=== PATIENT | female | born 2005 | race Caucasian/White ===

== ENCOUNTER 2023-03-29 16:07 | Observation (INO) ==
--- NOTE | 2023-03-29 16:39 | Emergency Department Note ---
ED Provider Note History of Present Illness Chief Complaint: Abdominal Pain Stated Complaint: ABD PAIN,NAUSEA,VOMITING,DIZZY Time Seen by Provider: 03/29/23 16:39 This patient is a 17-year-old Female who presents to the ED for evaluation of abdominal pain. She reports pain started around 9 am today. She has had a decreased appetite and some nausea for a few days, but no pain until today. Pain has been severe at times, currently rates it a 5/10. Pain is on the right side, from her umbilicus over. She reports one episode of vomiting. Denies BM changes. Denies fevers/chills or urinary symptoms. She states nothing makes the symptoms better or worse. Home Medications Medication Instructions Recorded Confirmed Type escitalopram oxalate 10 mg tablet 10 mg PO DAILY 03/29/23 03/29/23 History fluocinonide 0.05 % topical See Rx Instructions .Route .COMPLEX 03/29/23 03/29/23 History solution oxycodone-acetaminophen 5 mg-325 1 tab PO Q6H PRN pain #10 tabs 03/30/23 Rx mg tablet (Percocet) Allergies Allergy/AdvReac Type Severity Reaction Status Date / Time No Known Allergies Allergy Unverified 03/29/23 19:27 Past Med/Surg History Social History Smoking Status: Never smoker Do You Dip or Chew Tobacco: No; Hx Alcohol Use: No Hx Substance Use: No Preferred Language: Japanese Communication Ability: Effective Physician In Private Practice Required: No Beliefs That Will Affect Care: None Current Living Situation: Other Current Living Situation Comment: friend in off campus apartment, [employer] student Feels Safe at Home: Yes Safety Concerns: Feels Safe At This Time Assistive Devices: Glasses Physical Exam Vital Signs Vital Signs - 24 hr 03/29/23 16:38 Temperature 36.8 C Temperature Source Oral Pulse Rate 79 Respiratory Rate 16 Respiratory Effort / Characteristics Non-Labored Spontaneous Respiratory Depth Normal Respiratory Pattern Regular Blood Pressure 121/78 Blood Pressure Mean 92 Blood Pressure Position Sitting Pulse Oximetry 97 Oxygen Delivery Method Room Air Sepsis Recent Fever Within 48 Hours No Sepsis New/Unexplained Change in Mental Status No Sepsis Action Taken by Nursing No Action Required VITALS: Vitals are noted on the nurse's note and reviewed by myself. GENERAL: This is a 17-year-old female, in no acute distress, well-developed well-nourished. SKIN: The skin was without rashes. HEART: Regular rate and rhythm without murmurs gallops or rubs. LUNGS: Clear to auscultation bilaterally without wheezes, rales or rhonchi. ABDOMEN: Positive bowel sounds x 4. Soft, tenderness in the right mid abdomen and right lower quadrant. NEURO: Patient was alert and oriented to person place and time. Course Administered Medications Discontinued Medications Bupivacaine HCl/Epinephrine Bitart (Bupivacaine/Epinephrine 0.5% Mpf 1:200,000 30 Ml Vial) Confirm Administered Dose 30 ml .ROUTE .STK-MED ONE Stop: 03/29/23 21:44 Last Admin: 03/29/23 22:56 Dose: 20 ml Documented By: MARIMAR Fentanyl Citrate (Fentanyl Citrate Pf 100 Mcg/2 Ml Vial) 50 mcg IV Q5M PRN PRN Reason: PACU Use Only-Pain Stop: 03/30/23 05:40 Last Admin: 03/29/23 23:35 Dose: 50 mcg Documented By: Admin: 03/29/23 23:30 Dose: 50 mcg Documented By: SIDDHARTH Fentanyl Citrate (Fentanyl Citrate Pf 100 Mcg/2 Ml Vial) Confirm Administered Dose 100 mcg .ROUTE .STK-MED ONE Stop: 03/29/23 23:29 Last Admin: 03/29/23 23:49 Dose: Not Given Documented By: SIDDHARTH Sodium Chloride (Nss) 1,000 mls @ 999 mls/hr IV .Q1H1M ONE Stop: 03/29/23 17:40 Last Infusion: 03/29/23 18:37 Dose: Infused Documented By: Admin: 03/29/23 17:15 Dose: 999 mls/hr Documented By: HARSHAL Cefoxitin Sodium 2,000 mg/ (Dextrose) 50 mls @ 100 mls/hr IV ONCE ONE; Protocol Stop: 03/29/23 23:06 Last Infusion: 03/30/23 00:25 Dose: Infused Documented By: Admin: 03/29/23 22:10 Dose: 100 mls/hr Documented By: [id number] Sodium Chloride (Nss) 1,000 mls @ 75 mls/hr IV .[id number] [facility] Stop: 04/29/23 01:44 Last Infusion: 03/30/23 15:09 Dose: Infused Documented By: Admin: 03/30/23 01:47 Dose: 75 mls/hr Documented By: LELE Ioversol (Optiray 320 500ml) 88 ml IV ONCE ONE Stop: 03/29/23 19:11 Last Admin: 03/29/23 19:11 Dose: 88 ml Documented By: EVERTON Ketorolac Tromethamine (Ketorolac Tromethamine 15 Mg/Ml Vial) 10 mg IV NOW ONE Stop: 03/29/23 16:41 Last Admin: 03/29/23 17:16 Dose: 10 mg Documented By: HARSHAL Ondansetron HCl (Ondansetron Inj 2 Mg/Ml 2 Ml Vial) 4 mg IV NOW STA Stop: 03/29/23 16:41 Last Admin: 03/29/23 17:16 Dose: 4 mg Documented By: HARSHAL Oxycodone/Acetaminophen (Oxycodone/Acetaminophen 5mg/325mg Tab) 1 tab PO Q4H PRN PRN Reason: MODERATE Pain (4,5,6) & Pre PT Stop: 04/13/23 00:20 Last Admin: 03/30/23 14:16 Dose: 1 tab Documented By: Admin: 03/30/23 07:27 Dose: 1 tab Documented By: Admin: 03/30/23 00:52 Dose: 1 tab Documented By: LELE Medical Decision Making Differential Diagnosis Appendicitis, ovarian cyst, ovarian torsion, ectopic , TOA, PID, infections, diverticulitis, UTI, obstruction, mesenteric ischemia, aortic pathology, inflammatory bowel disease, renal colic, PUD, pancreatitis, biliary pathology, hernia, volvulus, constipation, as well as other pathologies. Home Medications was personally reviewed by me Laboratory Data Attestation: I reviewed the patient's lab results. 03/30/23 06:16 03/29/23 17:02 Lab Results 03/29/23 03/29/23 Range/Units 17:02 18:33 WBC 7.93 (4.8-10.8) K/ul RBC 4.68 (4.20-5.40) M/uL Hgb 13.4 (12.0-16.0) g/dl Hct 39.8 (37.0-47.0) % MCV 85.0 (80.0-100.0) fL MCH 28.6 (25.0-34.0) pg MCHC 33.7 (32.0-36.0) g/dL RDW Std Deviation 36.6 (36.4-46.3) fL RDW Coeff of Lemuel 12.0 (11.5-14.5) % Plt Count 172 (130-400) K/uL MPV 11.9 (9.4-12.4) fL Sodium 140 (136-145) mmol/L Potassium 4.1 (3.5-5.1) mmol/L Chloride 107 (98-107) mmol/L Carbon Dioxide 24 (21-32) mmol/L Anion Gap 9 (3-11) BUN 12 (6-23) mg/dl Creatinine 0.63 (0.6-1.2) mg/dl Est Cr Clr Drug Dosing 119.3 ml/min Est GFR ( Amer) > 150.0 ml/min Est GFR (Non-Af Amer) 130.0 ml/min BUN/Creatinine Ratio 19.0 (10-20) Glucose 98 (70-99(Fasting)) mg/dl Calcium 9.6 (8.6-10.3) mg/dl Total Bilirubin 0.4 (0.2-1.0) mg/dl AST 27 (13-39) U/L ALT 16 (7-52) U/L Alkaline Phosphatase 49 (34-104) U/L Total Protein 7.4 (6.0-8.3) gm/dl Albumin 4.8 (3.4-5.0) gm/dl Globulin 2.6 (2.5-4.0) gm/dl Albumin/Globulin Ratio 1.8 (0.9-2) Lipase 11 (11-82) U/L HCG, Qual Negative (Negative) Urine Color Yellow Urine Appearance Clear (Clear) Urine pH 7.0 (4.5-7.5) Ur Specific [place] 1.010 (1.000-1.030) Urine Protein Negative (Negative) Urine Glucose (UA) Negative (Negative) Urine Ketones Negative (Negative) Urine Blood Negative (Negative) Urine Nitrite Negative (Negative) Urine Bilirubin Negative (Negative) Urine Urobilinogen Negative (Negative) Ur Leukocyte Esterase Trace H (Negative) Urine RBC 0-4 (0-4) /hpf Urine WBC 0-5 (0-5) /hpf Ur Epithelial Cells 0-5 (0-5) /lpf Urine Bacteria Negative (Negative) POC Ur Test NEG (NEG) Imaging Data Attestation: I personally reviewed and interpreted this imaging study as follows: Radiologist's Impression: Abdomen/Pelvis CT 03/29/23 16:[address] WITH IV AND ORAL CONTRAST CT DOSE: 444.24 mGy.cm HISTORY: Right lower quadrant pain. Nausea. TECHNIQUE: Multiaxial CT images of the abdomen and pelvis were performed following the use of intravenous and oral contrast. A dose lowering technique was utilized adhering to the principles of ALARA. COMPARISON STUDY: None. FINDINGS: The lung bases are clear. No pneumoperitoneum. No pneumatosis. No acute fractures identified. There is a 6 mm hypodense lesion within the left hepatic lobe. This is technically too small to characterize. There is a 1 cm hypodense lesion within the right hepatic lobe. This may represent a small hemangioma. The main portal vein is patent. The gallbladder, pancreas, adrenal glands, and kidneys are unremarkable. No hydronephrosis. The main portal vein is patent. Normal caliber abdominal aorta. No retroperitoneal lymphadenopathy. Trace pelvic free fluid. This is likely physiologic. The uterus, bladder, left ovary are unremarkable. There is a 4.2 cm right ovarian cyst. No dilated loops of bowel to suggest an obstruction. The appendix is identified and demonstrates a retrocecal location. The appendix is filled with fluid and does not fill with contrast. The body of the appendix is borderline dilated up to 6.9 mm. There is minimal periappendiceal inflammatory change suggested at the tip of the appendix on image 194. Therefore, these findings could represent an early acute appendicitis. Clinical correlation recommended. In addition, there is abnormal hypodense 3 cm lesion within the right lower quadrant on image 199. This is indeterminate and could represent a Meckel's diverticulum, chronic lymph node, or less likely a small bowel mass. IMPRESSION: 1. Borderline abnormal appendix as described above. An early acute appendicitis is not excluded. Surgical consultation recommended for further evaluation. 2. An abnormal hypodense 3 cm lesion within the right lower quadrant. This is indeterminate and could represent a Meckel's diverticulum, chronic lymph node, or less likely a small bowel mass. Follow-up nuclear medicine Meckel scan and surgical consultation recommended. 3. No evidence for bowel obstruction. 4. A 4.2 cm right ovarian cyst. 5. Additional findings as described above. ACT 112: Negative or not required by law. Electronically signed by: Bolivar Marrero M.D. 03/29/2023 7:33 PM MDM Narrative This patient is a 17-year-old female who presents to the emergency department for evaluation of right lower quadrant abdominal pain. CT scan of the abdomen/pelvis with IV and oral contrast was performed and reviewed by radiology as above. Patient found to have a borderline abnormal appendix suggestive of possible early acute appendicitis. This does fit with patient's symptoms of 2 days of anorexia/nausea and current right lower quadrant pain. She was found to have a possible Meckel's diverticulum as well. General surgery was consulted and will take the patient to the OR for operative management. Patient verbalized understanding of my assessment and treatment plan and was discharged home in good condition. Impression Acute appendicitis Discharge Plan Visit Data Chief Complaint: Abdominal Pain Stated Complaint: ABD PAIN,NAUSEA,VOMITING,DIZZY ED Provider: David Amor ED Midlevel Provider: Charlotte Salmon Discharge Problem: Acute appendicitis Patient Disposition: Admitted As Inpatient Discharge Instructions Interventions: ED Discharge Assessment Last Done: 03/29/23 21:45
[2023-03-29] MEDS ORDERED: SODIUM CHLORIDE 0.9% 1,000 ML IV ONE (16:40)
[2023-03-29] MEDS ORDERED: ONDANSETRON INJ 2 MG/ML 2 ML VIAL IV STA (16:40)
[2023-03-29] MEDS ORDERED: KETOROLAC TROMETHAMINE 15 MG/ML VIAL IV ONE (16:40)
[2023-03-29 17:16] LABS: Hematocrit (blood only) 39.8 % (37.0-47.0); Hemoglobin 13.4 g/dl (12.0-16.0); Mean Corpuscular Hemoglobin 28.6 pg (25.0-34.0); Mean Corpuscular Hgb Conc 33.7 g/dL (32.0-36.0); Mean Platelet Volume 11.9 fL (9.4-12.4); Platelet Count 172 K/uL (130-400); RDW Standard Deviation 36.6 fL (36.4-46.3); Red Blood Count 4.68 M/uL (4.20-5.40); White Blood Count 7.93 K/ul (4.8-10.8)
[2023-03-29 17:32] LABS: Alanine Aminotransferase 16 U/L (7-52); Albumin Globulin Ratio 1.8 (0.9-2); Albumin Level 4.8 gm/dl (3.4-5.0); Alkaline Phosphatase 49 U/L (34-104); Anion Gap 9 (3-11); Aspartate Aminotransferase 27 U/L (13-39); Bilirubin,Total 0.4 mg/dl (0.2-1.0); Blood Urea Nitrogen 12 mg/dl (6-23); Calcium 9.6 mg/dl (8.6-10.3); Carbon Dioxide 24 mmol/L (21-32); Chloride 107 mmol/L (98-107); Creatinine Clr Calc Pharmacy 119.3 ml/min; Est GFR (African American) > 150.0 ml/min; Globulin 2.6 gm/dl (2.5-4.0); Glucose 98 mg/dl (70-99(Fasting)); Lipase 11 U/L (11-82); Potassium 4.1 mmol/L (3.5-5.1); Sodium 140 mmol/L (136-145); Total Protein 7.4 gm/dl (6.0-8.3)
[2023-03-29 17:51] LABS: Pregnancy Test, Serum Negative (Negative)
[2023-03-29 18:46] LABS: Appearance Urine Clear (Clear); Bilirubin Urine Negative (Negative); Blood Urine Negative (Negative); Color Urine Yellow; Glucose Urine UA Negative (Negative); Ketones Urine Negative (Negative); Leukocyte Esterase Urine Trace (Negative); Nitrite Urine Negative (Negative); Protein Urine Negative (Negative); Urobilinogen Urine Negative (Negative)
[2023-03-29 19:08] LABS: Bacteria Urine Negative (Negative); Epithelial Cell Urine 0-5 /lpf (0-5); RBC Urine 0-4 /hpf (0-4); WBC Urine 0-5 /hpf (0-5)
[2023-03-29] MEDS ORDERED: OPTIRAY 320 500ml IV ONE (19:10)
--- NOTE | 2023-03-29 19:35 | CT Scan Report ---
ABDOMEN AND PELVIS CT WITH IV AND ORAL CONTRAST CT DOSE: 444.24 mGy.cm HISTORY: Right lower quadrant pain. Nausea. TECHNIQUE: Multiaxial CT images of the abdomen and pelvis were performed following the use of intrave nous and oral contrast. A dose lowering technique was utilized adhering to the principles of ALARA. COMPARISON STUDY: None. FINDINGS: The lung bases are clear. No pneumoperitoneum. No pneumatosis. No acute fractures identifie d. There is a 6 mm hypodense lesion within the left hepatic lobe. This is technically too small to ch aracterize. There is a 1 cm hypodense lesion within the right hepatic lobe. This may represent a smal l hemangioma. The main portal vein is patent. The gallbladder, pancreas, adrenal glands, and kidneys are unremarkable. No hydronephrosis. The main portal vein is patent. Normal caliber abdominal aorta. No retroperitoneal lymphadenopathy. Trace pelvic free fluid. This is likely physiologic. The uterus, bladder, left ovary are unremarkable. There is a 4.2 cm right ovarian cyst. No dilated loops of bowel to suggest an obstruction. The appendix is identified and demonstrates a retrocecal location. The ap pendix is filled with fluid and does not fill with contrast. The body of the appendix is borderline d ilated up to 6.9 mm. There is minimal periappendiceal inflammatory change suggested at the tip of the appendix on image 194. Therefore, these findings could represent an early acute appendicitis. Clinic al correlation recommended. In addition, there is abnormal hypodense 3 cm lesion within the right low er quadrant on image 199. This is indeterminate and could represent a Meckel's diverticulum, chronic lymph node, or less likely a small bowel mass. IMPRESSION: 1. Borderline abnormal appendix as described above. An early acute appendicitis is not excluded. Surg ical consultation recommended for further evaluation. 2. An abnormal hypodense 3 cm lesion within the right lower quadrant. This is indeterminate and could represent a Meckel's diverticulum, chronic lymph node, or less likely a small bowel mass. Follow-up nuclear medicine Meckel scan and surgical consultation recommended. 3. No evidence for bowel obstruction. 4. A 4.2 cm right ovarian cyst. 5. Additional findings as described above. ACT 112: Negative or not required by law. Electronically signed by: Bolivar Marrero M.D. 03/29/2023 7:33 PM
--- NOTE | 2023-03-29 21:15 | History & Physical Report ---
Date of Service March 29, 2023 Assessment & Plan (1) Acute appendicitis: Plan: 17-year-old woman with acute appendicitis and incidental finding of possible Meckel's versus cystic lesion on CT scan. I had a long discussion with her concerning the appendicitis as well as the finding on CT scan. I discussed the risk and benefits of laparoscopic exploration with appendectomy and possible removal of the abnormality. All her questions were answered, and she is agreeable to proceed. We will take her to the operating room at the earliest convenience. Consent has been obtained. History of Present Illness Primary Care Provider: NO PCP 17-year-old woman presents with a 1 day history of crampy bloating abdominal pain in the upper abdomen centered around the umbilicus which subsequently radiated to the right lower quadrant. The pain progressed and became worse during the day. It was accompanied with chills. She does endorse nausea and dry heaving. She has never had pain like this in the past. She has not eaten anything for 2 days. She denies history of constipation or diarrhea. She denies blood in her stool or black tarry stools. She denies history of inflammatory bowel disease. She denies chest pain or shortness of breath. She is otherwise healthy. CT scan demonstrates acute appendicitis as well as a fluid-filled cystlike structure next to the ascending colon, possible Meckel's versus lymph node versus cyst. Allergies Allergy/AdvReac Type Severity Reaction Status Date / Time No Known Allergies Allergy Unverified 03/29/23 19:27 Home Medications Medication Instructions Recorded Confirmed Type escitalopram oxalate 10 mg tablet 10 mg PO DAILY 03/29/23 03/29/23 History fluocinonide 0.05 % topical See Rx Instructions .Route .COMPLEX 03/29/23 03/29/23 History solution Past Med/Surg History Social History Smoking Status: Never smoker Preferred Language: Tuvaluan Feels Safe at Home: Yes Review of Systems Review of Systems: All systems reviewed & are unremarkable except as noted in HPI & below Physical Exam Constitutional: WD/WN, vitals as above Eyes: PERRL, conjunctivae normal, anicteric sclerae Neck: trachea midline, no thyromegaly Respiratory: normal respiratory effort; no respiratory distress and no labored breathing Cardiovascular: Rate/Rhythm: regular rate and regular rhythm Gastrointestinal (Abdomen): Inspection/Auscultation: abdomen normal to inspection; abdomen not distended Percussion/Palpation: + abdomen tender (RLQ) and abdomen soft; no guarding and abdomen not rigid Positive Rovsing sign Skin: no rashes, warm and dry Psychiatric: A+Ox3, euthymic affect Results & Data Results & Data Vital Signs (Past 12 Hours) Vital Signs Temp Pulse Pulse Resp BP BP Pulse Ox 03/29/23 19:00 64 15 116/83 99 03/29/23 18:32 66 18 99 03/29/23 18:31 73 18 109/66 99 03/29/23 16:38 36.8 C 79 16 121/78 97 O2 Del Method 03/29/23 19:00 Room Air 03/29/23 18:32 Room Air 03/29/23 18:31 Room Air 03/29/23 16:38 Room Air Laboratory Results 03/29/23 03/29/23 Range/Units 18:33 17:02 WBC 7.93 (4.8-10.8) K/ul RBC 4.68 (4.20-5.40) M/uL Hgb 13.4 (12.0-16.0) g/dl Hct 39.8 (37.0-47.0) % MCV 85.0 (80.0-100.0) fL MCH 28.6 (25.0-34.0) pg MCHC 33.7 (32.0-36.0) g/dL RDW Std Deviation 36.6 (36.4-46.3) fL RDW Coeff of Lemuel 12.0 (11.5-14.5) % Plt Count 172 (130-400) K/uL MPV 11.9 (9.4-12.4) fL Sodium 140 (136-145) mmol/L Potassium 4.1 (3.5-5.1) mmol/L Chloride 107 (98-107) mmol/L Carbon Dioxide 24 (21-32) mmol/L Anion Gap 9 (3-11) BUN 12 (6-23) mg/dl Creatinine 0.63 (0.6-1.2) mg/dl Est Cr Clr Drug Dosing 119.3 ml/min Est GFR ( Amer) > 150.0 ml/min Est GFR (Non-Af Amer) 130.0 ml/min BUN/Creatinine Ratio 19.0 (10-20) Glucose 98 (70-99(Fasting)) mg/dl Calcium 9.6 (8.6-10.3) mg/dl Total Bilirubin 0.4 (0.2-1.0) mg/dl AST 27 (13-39) U/L ALT 16 (7-52) U/L Alkaline Phosphatase 49 (34-104) U/L Total Protein 7.4 (6.0-8.3) gm/dl Albumin 4.8 (3.4-5.0) gm/dl Globulin 2.6 (2.5-4.0) gm/dl Albumin/Globulin Ratio 1.8 (0.9-2) Lipase 11 (11-82) U/L HCG, Qual Negative (Negative) Urine Color Yellow Urine Appearance Clear (Clear) Urine pH 7.0 (4.5-7.5) Ur Specific [place] 1.010 (1.000-1.030) Urine Protein Negative (Negative) Urine Glucose (UA) Negative (Negative) Urine Ketones Negative (Negative) Urine Blood Negative (Negative) Urine Nitrite Negative (Negative) Urine Bilirubin Negative (Negative) Urine Urobilinogen Negative (Negative) Ur Leukocyte Esterase Trace H (Negative) Urine RBC 0-4 (0-4) /hpf Urine WBC 0-5 (0-5) /hpf Ur Epithelial Cells 0-5 (0-5) /lpf Urine Bacteria Negative (Negative) POC Ur Test NEG (NEG) Diagnostic Findings ABDOMEN AND PELVIS CT WITH IV AND ORAL CONTRAST CT DOSE: 444.24 mGy.cm HISTORY: Right lower quadrant pain. Nausea. TECHNIQUE: Multiaxial CT images of the abdomen and pelvis were performed following the use of intravenous and oral contrast. A dose lowering technique was utilized adhering to the principles of ALARA. COMPARISON STUDY: None. FINDINGS: The lung bases are clear. No pneumoperitoneum. No pneumatosis. No acute fractures identified. There is a 6 mm hypodense lesion within the left hepatic lobe. This is technically too small to characterize. There is a 1 cm hypodense lesion within the right hepatic lobe. This may represent a small hemangioma. The main portal vein is patent. The gallbladder, pancreas, adrenal glands, and kidneys are unremarkable. No hydronephrosis. The main portal vein is patent. Normal caliber abdominal aorta. No retroperitoneal lymphadenopathy. Trace pelvic free fluid. This is likely physiologic. The uterus, bladder, left ovary are unremarkable. There is a 4.2 cm right ovarian cyst. No dilated loops of bowel to suggest an obstruction. The appendix is identified and demonstrates a retrocecal location. The appendix is filled with fluid and does not fill with contrast. The body of the appendix is borderline dilated up to 6.9 mm. There is minimal periappendiceal inflammatory change suggested at the tip of the appendix on image 194. Therefore, these findings could represent an early acute appendicitis. Clinical correlation recommended. In addition, there is abnormal hypodense 3 cm lesion within the right lower quadrant on image 199. This is indeterminate and could represent a Meckel's diverticulum, chronic lymph node, or less likely a small bowel mass. IMPRESSION: 1. Borderline abnormal appendix as described above. An early acute appendicitis is not excluded. Surgical consultation recommended for further evaluation. 2. An abnormal hypodense 3 cm lesion within the right lower quadrant. This is indeterminate and could represent a Meckel's diverticulum, chronic lymph node, or less likely a small bowel mass. Follow-up nuclear medicine Meckel scan and surgical consultation recommended. 3. No evidence for bowel obstruction. 4. A 4.2 cm right ovarian cyst. 5. Additional findings as described above. ACT 112: Negative or not required by law. (1) Acute appendicitis Acute appendicitis type: with localized peritonitis Appendicitis gangrene presence: without gangrene Appendicitis perforation presence: without perforation Appendicitis abscess presence: without abscess Qualified Code(s): K35.30 - Acute appendicitis with localized peritonitis, without perforation or gangrene
[2023-03-29] MEDS ORDERED: ROCURONIUM BROMIDE 10 MG/ML 5 ML VIAL IV ONE (21:26)
[2023-03-29] MEDS ORDERED: PROPOFOL IV EMULSION 10 MG/ML 20 ML VIAL IV ONE (21:26)
[2023-03-29] MEDS ORDERED: fentaNYL citrate PF 100 MCG/2 ML VIAL ONE ×3 (21:26→23:28)
[2023-03-29] MEDS ORDERED: SUCCINYLCHOLINE 100MG/5ML SYR IV ONE (21:33)
[2023-03-29] MEDS ORDERED: HYDROmorphone INJ 2 MG/ML SYR/VIAL IV PRN (21:40)
[2023-03-29] MEDS ORDERED: ePHEDrine sulfate 50 MG/ML AMP IV PRN (21:40)
[2023-03-29] MEDS ORDERED: ONDANSETRON INJ 2 MG/ML 2 ML VIAL IV PRN (21:40)
[2023-03-29] MEDS ORDERED: ATROPINE SULFATE 0.1 MG/ML 10ML SYR IV PRN (21:40)
[2023-03-29] MEDS ORDERED: BUPIVACAINE/EPINEPHRINE 0.5% MPF 1:200,000 30 ML VIAL ONE (21:43)
--- NOTE | 2023-03-29 21:44 | Anesthesiology Consultation ---
Date of Service March 29, 2023 Assessment & Plan ASA ASA1E Proposed Anesthesia Anesthesia Type: General Risk / Benefits Reviewed With: PT / POA / Parent / Guardian, Accepts Plan and Informed Consent Obtained History Surgery Operation Date: 03/29/23 19:20 Proposed Procedures p Laparoscopic Appendectomy - Kristofer Boone MD Height/Weight Height: 5 ft 8 in Weight: 52.6 kg Allergies Allergy/AdvReac Type Severity Reaction Status Date / Time No Known Allergies Allergy Unverified 03/29/23 19:27 Medications Home Medications Medication Instructions Recorded Confirmed Last Taken escitalopram oxalate 10 mg tablet 10 mg PO DAILY 03/29/23 03/29/23 03/28/23 fluocinonide 0.05 % topical See Rx Instructions .Route .COMPLEX 03/29/23 03/29/23 Unknown solution NPO Date Last Intake of Fluids: 03/29/23 Time Last Intake of Fluids: 19:00 Last Intake of Fluids Comment: iv contrast Date Last Intake of Solids: 03/29/23 Time Last Intake of Solids: 00:00 Exercise / Class Metabolic Activity 1 > 8 Run/Swim/Ski/Tennis Past Anesthesia History No Hx of Anesthesia Complications and No Family Hx of Anesthesia Complications History of PONV No Hx of PONV and No Hx of Motion Sickness Social History Smoking Status: Never smoker Review of Systems denies fever/cough/ colds/ chest pain/ SOB/ ERICA denies ERICA Physical Exam Vital Signs Last Vital Signs Temp 36.8 C 03/29/23 16:38 Pulse 64 03/29/23 19:00 Resp 15 03/29/23 19:00 BP 116/83 03/29/23 19:00 Pulse Ox 99 03/29/23 19:00 O2 Del Method Room Air 03/29/23 19:00 ENMT Mouth: no TMJ abnormality and no dentition abnormality Thyromental Distance: > or= 3.5 Finger Breadths Mallampati Class: II Neck neck extension not limited Respiratory normal respiratory effort; no respiratory distress Auscultation: lungs clear to auscultation bilaterally Cardiovascular Rate/Rhythm: regular rate and regular rhythm Neurologic moves all extremities Psychiatric Orientation: alert and oriented x 3 Testing Laboratory Results 03/29/23 17:02 03/29/23 17:02 Urine Color Yellow 03/29/23 18:33 Urine Appearance Clear (Clear) 03/29/23 18:33 Urine pH 7.0 (4.5-7.5) 03/29/23 18:33 Ur Specific [place] 1.010 (1.000-1.030) 03/29/23 18:33 Urine Protein Negative (Negative) 03/29/23 18:33 Urine Glucose (UA) Negative (Negative) 03/29/23 18:33 Urine Ketones Negative (Negative) 03/29/23 18:33 Urine Nitrite Negative (Negative) 03/29/23 18:33 Ur Leukocyte Esterase Trace (Negative) H 03/29/23 18:33 Urine RBC 0-4 /hpf (0-4) 03/29/23 18:33 Urine WBC 0-5 /hpf (0-5) 03/29/23 18:33 Ur Epithelial Cells 0-5 /lpf (0-5) 03/29/23 18:33 03/29/23 18:33 POC Ur Test NEG
[2023-03-29] MEDS ORDERED: diphenhydrAMINE 50 MG/ML VIAL ONE (22:07)
[2023-03-29] MEDS ORDERED: ePHEDrine sulfate 50 MG/5 ML SYR ONE (22:27)
[2023-03-29] MEDS ORDERED: SUGAMMADEX SODIUM 200 MG/2 ML VIAL IV ONE (22:27)
[2023-03-29] MEDS ORDERED: cefOXitin 2,000 MG in DEXTROSE 5 % MINI-B 50 ML IV ONE (22:37)
--- NOTE | 2023-03-29 23:18 | Anesthesiology Progress Note ---
Date of Service March 29, 2023 Anesthesia Post Procedure Vital Signs Vital Signs: Temp Pulse Pulse Resp BP BP Pulse Ox 03/29/23 21:45 70 17 117/73 97 03/29/23 19:00 64 15 116/83 99 03/29/23 18:32 66 18 99 03/29/23 18:31 73 18 109/66 99 03/29/23 16:38 36.8 C 79 16 121/78 97 O2 Del Method 03/29/23 21:45 Room Air 03/29/23 19:00 Room Air 03/29/23 18:32 Room Air 03/29/23 18:31 Room Air 03/29/23 16:38 Room Air Pain Intensity Abdomen: Pain Intensity: 2 Transfer of Care Handoff Completed per policy Notes Mental Status: alert / awake / arousable and participated in evaluation Patient Amnestic to Procedure: Yes Nausea / Vomiting: adequately controlled Pain: adequately controlled Airway Patency, RR, SpO2: stable & adequate BP & HR: stable & adequate Hydration State: stable & adequate Anesthetic Complications: no major complications apparent and Pt Satisfied with anesthetic care
--- NOTE | 2023-03-29 23:18 | Post Operative Brief Note ---
Immediate Post Op Note v1 Date of Surgery March 29, 2023 Pre & Post Diagnosis Operation Date: 03/29/23 19:20 Pre-Op Diagnosis: Acute appendicitis Post-Op Diagnosis: Acute appendicitis I identified the patient and participated in the time-out.: Yes Procedure Operation Date: 03/29/23 19:20 Actual Procedures p Laparoscopic Appendectomy(Not Applicable) - Kristofer Boone MD Surgeon Kristofer Boone MD Direct Care Counselor None Estimated Blood Loss 5 Findings Consistent with Post-Op Diagnosis
--- NOTE | 2023-03-29 23:22 | Operative Report ---
Post Operative Report Pre & Post Diagnosis Operation Date: 03/29/23 19:20 Pre-Op Diagnosis: Acute appendicitis Post-Op Diagnosis: Acute appendicitis I identified the patient and participated in the time-out.: Yes Procedure Operation Date: 03/29/23 19:20 Actual Procedures p Laparoscopic Appendectomy(Not Applicable) - Kristofer Boone MD Surgeon Kristofer Boone MD Director Of Market Analysis None Estimated Blood Loss 5 Findings Consistent with Post-Op Diagnosis Acute appendicitis; no Meckel's diverticulum; prominent lymph nodes within mesentery; cystic outpouching of what appears to be the terminal ileum or cecum Specimens Appendix Drains None Anesthesia Type General Complications No immediate complications Description of Procedure The patient was taken to the operating room, and placed supine on the operating table. A timeout was performed, perioperative antibiotics were administered, SCD boots were placed. After adequate anesthesia and analgesia was obtained, the abdomen was prepped and draped in the normal sterile fashion. A 1 cm incision was made in the supraumbilical region and carried down to the level of the fascia. A trach hook was used to grasp the fascia and elevated and a varies needle was used to enter the abdominal cavity. The abdomen was insufflated to a pressure of 15 mmHg, and a 5 mm trocar was placed in this location. A 5 mm 30 degree laparoscope was placed into the abdominal cavity, and the abdomen was surveyed. The patient was placed in Trendelenburg and slightly to the left. One 5 mm trocar was placed in the right upper quadrant, and one 12 mm trocar was placed in the left lower quadrant under direct visualization. The right colon was identified and traced down to the cecum. The appendix was identified in the retrocecal position and was elevated anteriorly and medially. A window was created at the base of the appendix with a [place] dissector. The Endo CRISTOFER stapler was used to transect the appendix at its base through noninflamed tissue, and subsequently the mesoappendix. The appendix was placed in an Endo Catch bag, and removed via the left lower quadrant port site. I then ran the bowel back from the terminal ileum. No Meckel's was identified. There were prominent lymph nodes within the mesentery of the small bowel and colon. The cystic finding on CT scan seem to be a part of either the terminal ileum or cecum. Attention was turned to hemostasis, which was excellent. The abdomen was copiously irrigated and suctioned free, and again hemostasis was found to be excellent. All trochars removed under direct visualization. The abdomen was desufflated. The fascia in the 12 mm port site was closed with a 0 Vicryl suture. The skin was closed with a running 4-0 Monocryl subcuticular stitch. Dermabond was applied. The patient tolerated the procedure without complication, and was transferred in stable condition to the PACU. All instrument, needle, and sponge counts were correct at the end of the case. I attest to the content of the Intraoperative Record and any orders documented therein. Any exceptions are noted below.
[2023-03-29] MEDS: fentaNYL citrate PF 100 MCG/2 ML VIAL IV PRN ×2 (23:30→23:35)
[2023-03-30] MEDS ORDERED: ONDANSETRON INJ 2 MG/ML 2 ML VIAL IV PRN (00:21)
[2023-03-30] MEDS ORDERED: PROMETHAZINE HCL 12.5 MG in SODIUM CHLORIDE 0.9% 50 ML IV PRN (00:21)
[2023-03-30] MEDS ORDERED: KETOROLAC 30 MG/ML VIAL IV PRN (00:21)
[2023-03-30] MEDS ORDERED: MoRPHine SULFATE 2 MG/ML CARP IV PRN (00:21)
[2023-03-30] MEDS ORDERED: diphenhydrAMINE Capsule 25 MG CAP PO PRN (00:21)
[2023-03-30] MEDS: oxyCODONE/ACETAMINOPHEN 5mg/325mg TAB PO PRN ×3 (00:52→14:16)
[2023-03-30 01:02] LABS: Basophils # (auto) 0.01 K/uL (0.00-0.20); Basophils % (auto) 0.2 %; Hematocrit (blood only) 35.2 % (37.0-47.0); Hemoglobin 11.6 g/dl (12.0-16.0); Immature Granulocytes # (auto) 0.01 K/uL (0.01-0.20); Immature Granulocytes % (auto) 0.2 %; Lymphocytes # (auto) 0.88 K/uL (1.20-3.40); Lymphocytes % (auto) 18.5 %; Mean Corpuscular Hemoglobin 28.2 pg (25.0-34.0); Mean Corpuscular Volume 85.6 fL (80.0-100.0); Mean Platelet Volume 11.4 fL (9.4-12.4); Monocytes # (auto) 0.11 K/uL (0.11-0.59); Monocytes % (auto) 2.3 %; Neutrophils # (auto) 3.74 K/uL (1.40-6.50); Neutrophils % (auto) 78.8 %; Platelet Count 151 K/uL (130-400); RDW Coefficient of Variation 11.9 % (11.5-14.5); RDW Standard Deviation 37.2 fL (36.4-46.3); Red Blood Count 4.11 M/uL (4.20-5.40); White Blood Count 4.75 K/ul (4.8-10.8)
[2023-03-30] MEDS ORDERED: SODIUM CHLORIDE 0.9% 1000 ML BAG IV STA (01:28)
[2023-03-30] MEDS ORDERED: SODIUM CHLORIDE 0.9% 1,000 ML IV SCH (01:45)
[2023-03-30 06:58] LABS: Basophils # (auto) 0.01 K/uL (0.00-0.20); Basophils % (auto) 0.2 %; Hematocrit (blood only) 36.3 % (37.0-47.0); Hemoglobin 11.9 g/dl (12.0-16.0); Immature Granulocytes # (auto) 0.01 K/uL (0.01-0.20); Immature Granulocytes % (auto) 0.2 %; Lymphocytes # (auto) 0.77 K/uL (1.20-3.40); Lymphocytes % (auto) 13.1 %; Mean Corpuscular Hemoglobin 28.3 pg (25.0-34.0); Mean Corpuscular Hgb Conc 32.8 g/dL (32.0-36.0); Mean Corpuscular Volume 86.4 fL (80.0-100.0); Mean Platelet Volume 11.8 fL (9.4-12.4); Monocytes # (auto) 0.12 K/uL (0.11-0.59); Neutrophils # (auto) 4.99 K/uL (1.40-6.50); Neutrophils % (auto) 84.5 %; Platelet Count 171 K/uL (130-400); RDW Coefficient of Variation 11.9 % (11.5-14.5); RDW Standard Deviation 37.8 fL (36.4-46.3)
--- NOTE | 2023-03-30 13:55 | Surgery Progress Note ---
Date of Service March 30, 2023 Assessment & Plan (1) Acute appendicitis: Plan POD #1 s/p lap appendectomy Doing well Advance diet as tolerated Discharge to home today Follow-up in 2 weeks Admission and Anticipated Discharge Date Admission Date: March 29, 2023 Subjective Doing well. Minimal pain. Tolerating liquids. No nausea or vomiting. Physical Exam Physical Exam: AFVSS NAD, A&O x 3 Abdomen: Soft, nontender Incisions C/C/I Dermabond intact Results & Data Vital Signs (Past 12 Hours) Vital Signs Temp Pulse Resp BP BP Pulse Ox O2 Del Method 03/30/23 12:39 37 C 70 18 120/73 96 Room Air 03/30/23 07:06 37 C 77 14 105/61 96 Room Air 03/30/23 03:10 36.8 C 77 16 116/74 97 Room Air 03/30/23 02:22 36.7 C 79 18 134/71 99 Nasal Cannula O2 Flow Rate 03/30/23 12:39 03/30/23 07:06 03/30/23 03:10 03/30/23 02:22 2.0 Laboratory Results 03/30/23 03/30/23 03/29/23 Range/Units 06:16 00:38 18:33 WBC 5.90 4.75 L (4.8-10.8) K/ul RBC 4.20 4.11 L (4.20-5.40) M/uL Hgb 11.9 L 11.6 L (12.0-16.0) g/dl Hct 36.3 L 35.2 L (37.0-47.0) % MCV 86.4 85.6 (80.0-100.0) fL MCH 28.3 28.2 (25.0-34.0) pg MCHC 32.8 33.0 (32.0-36.0) g/dL RDW Std Deviation 37.8 37.2 (36.4-46.3) fL RDW Coeff of Lemuel 11.9 11.9 (11.5-14.5) % Plt Count 171 151 (130-400) K/uL MPV 11.8 11.4 (9.4-12.4) fL Immature Gran % (Auto) 0.2 0.2 % Neut % (Auto) 84.5 78.8 % Lymph % (Auto) 13.1 18.5 % [place] % (Auto) 2.0 2.3 % Eos % (Auto) 0.0 0.0 % Baso % (Auto) 0.2 0.2 % Neut # (Auto) 4.99 3.74 (1.40-6.50) K/uL Lymph # (Auto) 0.77 L 0.88 L (1.20-3.40) K/uL [place] # (Auto) 0.12 0.11 (0.11-0.59) K/uL Eos # (Auto) 0.00 0.00 (0.00-0.50) K/uL Baso # (Auto) 0.01 0.01 (0.00-0.20) K/uL Immature Gran # (Auto) 0.01 0.01 (0.01-0.20) K/uL Sodium (136-145) mmol/L Potassium (3.5-5.1) mmol/L Chloride (98-107) mmol/L Carbon Dioxide (21-32) mmol/L Anion Gap (3-11) BUN (6-23) mg/dl Creatinine (0.6-1.2) mg/dl Est Cr Clr Drug Dosing ml/min Est GFR ( Amer) ml/min Est GFR (Non-Af Amer) ml/min BUN/Creatinine Ratio (10-20) Glucose (70-99(Fasting)) mg/dl Calcium (8.6-10.3) mg/dl Total Bilirubin (0.2-1.0) mg/dl AST (13-39) U/L ALT (7-52) U/L Alkaline Phosphatase (34-104) U/L Total Protein (6.0-8.3) gm/dl Albumin (3.4-5.0) gm/dl Globulin (2.5-4.0) gm/dl Albumin/Globulin Ratio (0.9-2) Lipase (11-82) U/L HCG, Qual (Negative) Urine Color Yellow Urine Appearance Clear (Clear) Urine pH 7.0 (4.5-7.5) Ur Specific [place] 1.010 (1.000-1.030) Urine Protein Negative (Negative) Urine Glucose (UA) Negative (Negative) Urine Ketones Negative (Negative) Urine Blood Negative (Negative) Urine Nitrite Negative (Negative) Urine Bilirubin Negative (Negative) Urine Urobilinogen Negative (Negative) Ur Leukocyte Esterase Trace H (Negative) Urine RBC 0-4 (0-4) /hpf Urine WBC 0-5 (0-5) /hpf Ur Epithelial Cells 0-5 (0-5) /lpf Urine Bacteria Negative (Negative) POC Ur Test NEG (NEG) 03/29/23 Range/Units 17:02 WBC 7.93 (4.8-10.8) K/ul RBC 4.68 (4.20-5.40) M/uL Hgb 13.4 (12.0-16.0) g/dl Hct 39.8 (37.0-47.0) % MCV 85.0 (80.0-100.0) fL MCH 28.6 (25.0-34.0) pg MCHC 33.7 (32.0-36.0) g/dL RDW Std Deviation 36.6 (36.4-46.3) fL RDW Coeff of Lemuel 12.0 (11.5-14.5) % Plt Count 172 (130-400) K/uL MPV 11.9 (9.4-12.4) fL Immature Gran % (Auto) % Neut % (Auto) % Lymph % (Auto) % [place] % (Auto) % Eos % (Auto) % Baso % (Auto) % Neut # (Auto) (1.40-6.50) K/uL Lymph # (Auto) (1.20-3.40) K/uL [place] # (Auto) (0.11-0.59) K/uL Eos # (Auto) (0.00-0.50) K/uL Baso # (Auto) (0.00-0.20) K/uL Immature Gran # (Auto) (0.01-0.20) K/uL Sodium 140 (136-145) mmol/L Potassium 4.1 (3.5-5.1) mmol/L Chloride 107 (98-107) mmol/L Carbon Dioxide 24 (21-32) mmol/L Anion Gap 9 (3-11) BUN 12 (6-23) mg/dl Creatinine 0.63 (0.6-1.2) mg/dl Est Cr Clr Drug Dosing 119.3 ml/min Est GFR ( Amer) > 150.0 ml/min Est GFR (Non-Af Amer) 130.0 ml/min BUN/Creatinine Ratio 19.0 (10-20) Glucose 98 (70-99(Fasting)) mg/dl Calcium 9.6 (8.6-10.3) mg/dl Total Bilirubin 0.4 (0.2-1.0) mg/dl AST 27 (13-39) U/L ALT 16 (7-52) U/L Alkaline Phosphatase 49 (34-104) U/L Total Protein 7.4 (6.0-8.3) gm/dl Albumin 4.8 (3.4-5.0) gm/dl Globulin 2.6 (2.5-4.0) gm/dl Albumin/Globulin Ratio 1.8 (0.9-2) Lipase 11 (11-82) U/L HCG, Qual Negative (Negative) Urine Color Urine Appearance (Clear) Urine pH (4.5-7.5) Ur Specific [place] (1.000-1.030) Urine Protein (Negative) Urine Glucose (UA) (Negative) Urine Ketones (Negative) Urine Blood (Negative) Urine Nitrite (Negative) Urine Bilirubin (Negative) Urine Urobilinogen (Negative) Ur Leukocyte Esterase (Negative) Urine RBC (0-4) /hpf Urine WBC (0-5) /hpf Ur Epithelial Cells (0-5) /lpf Urine Bacteria (Negative) POC Ur Test (NEG) (1) Acute appendicitis Acute appendicitis type: with localized peritonitis Appendicitis gangrene presence: without gangrene Appendicitis perforation presence: without perforation Appendicitis abscess presence: without abscess Qualified Code(s): K35.30 - Acute appendicitis with localized peritonitis, without perforation or gangrene
== END 2023-03-30 14:40 | disposition home or self-care (01) ==
LOC: ED 16:07 → 3N 16:07
DX: K35.80 Unspecified acute appendicitis